=== PATIENT | female | born 1975 | race Caucasian/White ===

== ENCOUNTER 2020-04-16 19:48 | Emergency (ER) | payer MEDICAID ==
[~2020-04-16] VITALS: Ht 157.5 cm; Wt 69.4 kg
--- NOTE | 2020-04-16 19:53 | NUR ---
Patient to ER bed 06 to gown for evaluation. Side rails up.
--- NOTE | 2020-04-16 20:00 | NUR ---
Pt brought by matt, Ed&Ox4, pt presents to ER with heavy vaginal bleeding, pt states she is 10 weeks and she had an ultrasound this morning indicating stating skin pink and warm, cap refill <3, respirations even and unlabored.
[2020-04-16 20:07] VITALS: BP_SYST 147
--- NOTE | 2020-04-16 20:10 | NUR ---
Dr. Salguero bedside for pt eval
[2020-04-16] MEDS ORDERED: ACETAMINOPHEN 325 MG TABLET PO ONE (20:30)
--- NOTE | 2020-04-16 20:30 | NUR ---
Pt requesting medication for mild cramping notified
[2020-04-16 20:45] LABS: BASOPHILS % (AUTO) 0.4 % (0.0-2.0); EOSINOPHILS % (AUTO) 0.3 % (0.0-4.0); HEMATOCRIT 37.1 % (36-48); HEMOGLOBIN 12.4 g/dL (12.0-16.0); LYMPHOCYTES # (AUTO) 1.3 K/uL (1.0-5.5); LYMPHOCYTES % (AUTO) 11.4 % (20.5-51.5); MEAN CORPUSCULAR HEMOGLOBIN 30 pg (27-31); MEAN CORPUSCULAR HGB CONC 33 % (32-36); MEAN CORPUSCULAR VOLUME 91 fL (79.0-98.0); MONOCYTES # (AUTO) 0.6 K/uL (0.0-1.0); MONOCYTES % (AUTO) 5.6 % (1.7-9.3); NEUTROPHILS % (AUTO) 82.3 % (40.0-70.0); PLATELET COUNT (AUTO) 270 K/uL (130-430); RED BLOOD CELL COUNT(AUTO) 4.07 MIL/uL (4.2-6.2); RED CELL DISTRIBUTION WIDTH 13.6 % (9.0-15.0)
[2020-04-16 22:22] LABS: BILIRUBIN,URINE NEGATIVE (NEGATIVE); BLOOD, URINE 3+ (NEGATIVE); CLARITY/URINE TURBID (CLEAR); COLOR,URINE RED (YELLOW); GLUCOSE,URINE NEGATIVE (NEGATIVE); KETONES,URINE 1+ (NEGATIVE); LEUKOCYTE ESTERASE ,URINE 2+ (NEGATIVE); NITRITE, URINE POSITIVE (NEGATIVE); PH,URINE 6.5 (5.0-8.0); PROTEIN URINE 3+ (NEGATIVE)
[2020-04-16 22:47] LABS: BACTERIA,URINE MODERATE /HPF (None Seen); RBC,URINE >100 /HPF (0-3); WBC,URINE 20-50 /HPF (0-3)
--- NOTE | 2020-04-16 23:00 | NUR ---
Pt A&Ox4, states bleeding is decreasing , pt states she wants to go home
--- NOTE | 2020-04-16 23:01 | NUR ---
ASSUMED CARE OF PT. PT AWAITING RHOGAM FROM LAB. PT IS NO APPARENT DISTRESS.
--- NOTE | 2020-04-16 23:01 | NUR ---
Report given to Lupe CASTRO
[2020-04-16] MEDS ORDERED: RHO(D) IMMUNE GLOBULIN/MALTOSE 1500 UNITS/1.3 ML (WINHRO) INJ ONE (23:30)
--- NOTE | 2020-04-17 01:00 | NUR ---
PT AWAITING RHOGAM FROM LABORATORY. PT IS RESTING QUIETLY IN NO DISTRESS.
--- NOTE | 2020-04-17 01:40 | NUR ---
Patient given written and verbal discharge instructions and verbalizes understanding. DR. CAMRON DILLARD MD discussed with patient the results and treatment provided. Patient in stable condition. ID arm band removed. Rx of given. Patient educated on pain management and to follow up with PMD. Pain Scale 0/10 Opportunity for questions provided and answered. Medication side effect fact sheet provided.
[2020-04-17 01:42] VITALS: BP_SYST 144
== END 2020-04-17 01:40 | disposition home or self-care (01) ==
LOC: SED 19:48
DX: O03.9 Complete or unspecified spontaneous abortion without complication (principal); O23.41 Unspecified infection of urinary tract in pregnancy, first trimester; Z3A.10 10 weeks gestation of pregnancy
CPT/HCPCS: 36415; 76801; 76817; 81000; 81025; 84702; 85025; 86886; 86900; 86901; 87086; 96372; 99284; J2790; J2792

== ENCOUNTER 2023-12-17 09:11 | Emergency (ER) | payer MEDICAID ==
[~2023-12-17] VITALS: Ht 154.9 cm; Wt 68.0 kg
[2023-12-17 09:11] VITALS: BP_SYST 153; PULSE 84; RESP 17; TEMP 97.7; O2SAT 99
[2023-12-17] MEDS ORDERED: KETOROLAC TROMETHAMINE 15 MG VIAL IVP ONE (09:45)
[2023-12-17] MEDS ORDERED: NACL 0.9% 1,000 ML IV ONE (09:45)
[2023-12-17 09:56] LABS: BASOPHILS % (AUTO) 0.4 % (0.0-2.0); EOSINOPHILS # (AUTO) 0.1 K/uL (0.0-0.4); EOSINOPHILS % (AUTO) 1.4 % (0.0-4.0); HEMATOCRIT 39.9 % (36-48); HEMOGLOBIN 13.7 g/dL (12.0-16.0); LYMPHOCYTES # (AUTO) 1.9 K/uL (1.0-5.5); LYMPHOCYTES % (AUTO) 27.2 % (20.5-51.5); MEAN CORPUSCULAR HEMOGLOBIN 31 pg (27-31); MEAN CORPUSCULAR HGB CONC 34 % (32-36); MEAN CORPUSCULAR VOLUME 90 fL (79.0-98.0); MONOCYTES # (AUTO) 0.4 K/uL (0.0-1.0); NEUTROPHILS # (AUTO) 4.6 K/uL (1.8-7.7); PLATELET COUNT (AUTO) 314 K/uL (130-430); RED BLOOD CELL COUNT(AUTO) 4.45 MIL/uL (4.2-6.2); RED CELL DISTRIBUTION WIDTH 13.6 % (9.0-15.0); WHITE BLOOD COUNT (AUTO) 7.1 K/uL (4.8-10.8)
[2023-12-17 10:03] LABS: CALCIUM 8.9 mg/dL (8.4-11.0); CREATININE 0.71 mg/dL (0.55-1.30); POTASSIUM 4.4 mmol/L (3.5-5.1)
[2023-12-17 10:12] LABS: ALBUMIN 3.4 g/dL (3.4-4.8); BILIRUBIN,DIRECT 0.1 mg/dL (0.0-0.3); TOTAL BILIRUBIN 0.4 mg/dL (0.0-1.0); TOTAL PROTEIN, SERUM 7.4 g/dL (6.4-8.3)
[2023-12-17 10:51] LABS: BILIRUBIN,URINE NEGATIVE (NEGATIVE); CLARITY/URINE CLOUDY (CLEAR); COLOR,URINE YELLOW (YELLOW); GLUCOSE,URINE NEGATIVE (NEGATIVE); KETONES,URINE NEGATIVE (NEGATIVE); LEUKOCYTE ESTERASE ,URINE TRACE (NEGATIVE); NITRITE, URINE NEGATIVE (NEGATIVE); PROTEIN URINE NEGATIVE (NEGATIVE); UROBILINOGEN,URINE 0.2 (0.2-1.0)
[2023-12-17 11:38] LABS: BLOOD, URINE TRACE (NEGATIVE)
[2023-12-17 11:41] LABS: BACTERIA,URINE MODERATE /HPF (None Seen)
[2023-12-17] MEDS ORDERED: CEPH-548 PO (11:54)
[2023-12-17] MEDS ORDERED: cephALEXin 500 MG CAPSULE PO ONE (12:00)
[2023-12-17 12:07] VITALS: BP_SYST 153; PULSE 84; RESP 17; TEMP 97.7; O2SAT 99
== END 2023-12-17 12:06 | disposition home or self-care (01) ==
LOC: SED 09:11
DX: N39.0 Urinary tract infection, site not specified (principal); R10.31 Right lower quadrant pain; Z79.899 Other long term (current) drug therapy
CPT/HCPCS: 99285; 74176; 96374; 96361; 80076; 80048; 81000; 81001; 83690; 85025; 36415; 76376; 81025; 81015; J1885; J7030